=== PATIENT | female | born 1975 | race Caucasian/White ===

== ENCOUNTER → 2022-04-08 | Outpatient (CLI) | payer OTHER ==
[~2022-04-08] MED LIST: ABILIFY5 MG PO; ATARAX 10MG10 MG/TAB PO; ATIVAN 1MG T1 MG/TAB PO; COLACE 100100 MG/CAP PO; CYMBALTA 60MG60 MG PO; DESYREL 100MG100 MG PO; EFFEXOR XR75 MG/CAP PO; ELMIRON 10100 MG/CA1 PO; FLEXERIL 1010 MG/TAB PO; GEODON 40MG40 MG PO; IMITREX 25MG TA25 MG PO; LYRICA 75MG CAP75 MG PO; MINIPRESS2 MG; NORCO 325 MG-101 TAB PO; NORCO 325 MG-51 TAB PO; PROAIR HFA0.09 MG/AC IH; PYRIDIUM200 M1 PO; RESTORIL30 MG PO; RT ADVAIR HFA 412 GM IH; SAVELLA50 MG PO; TOPROL XL 25MG25 MG PO
== END ==
LOC: COL.RAD 10:03
DX: R31.0 Gross hematuria (principal)

== ENCOUNTER 2022-05-05 08:30 | Outpatient (RCR) | payer OTHER ==
[2022-04-21 09:03] VITALS: BP 105/78; PULSE 95; TEMP 97.5
[2022-04-28 15:10] VITALS: BP 122/82; PULSE 88; TEMP 97.5
[~2022-05-05] VITALS: Ht 175.3 cm; Wt 88.0 kg
[2022-05-05 08:29] VITALS: BP 117/41; PULSE 87; TEMP 97.4
== END 2022-05-06 | disposition home or self-care (01) ==
LOC: EUO
DX: Z45.2 Encounter for adjustment and management of vascular access device (principal); R31.0 Gross hematuria
CPT/HCPCS: C1751

== ENCOUNTER → 2023-03-31 | Outpatient (CLI) | payer BC ==
[~2023-03-31] MED LIST changes: +Iohexol 300 - 100 ML VIAL IV ONE; +NS 100 ML IV SCH
== END ==
LOC: COL.RAD 12:11
DX: N28.1 Cyst of kidney, acquired (principal)
CPT/HCPCS: J1644; Q9967